=== PATIENT | male | born 1975 | race Caucasian/White ===

== ENCOUNTER 2016-09-26 12:55 | Inpatient (IN) | payer OTHER, BC ==
[2016-09-26 13:02] VITALS: BMI 27.2
--- NOTE | 2016-09-26 13:46 | PDOC ---
History of Present Illness - General History Source: Patient, Old Records Exam Limitations: No Limitations <Tosin Redman - Last Filed: 09/26/16 16:35> - General History Source: Patient Exam Limitations: No Limitations - History of Present Illness Initial Comments: 09/26/16 13:58 The patient is a 41 year old male, with no significant past medical history who presents to the emergency department with intermittent headache for 2 weeks. He ranks his pain a 10/10 in pain intensity. He describes the pain as a throbbing sensation, often made worse when he does any exerting activity. He reports the episodes of headaches last a couple minute each during the first onset, getting longer and more painful recently, noting his last episode lasted about 45 minute. He reports the headache is often localized over the right side of his head. He reports having alleviation from Aleve. He notes having one episode of nausea and vomiting while having his headache. He denies any recent fevers, chills, or dizziness. He denies any recent diarrhea or constipation. Allergies: NKA Past surgical history: None reported. Social History: current smoker. Denies EtOH and drug use. 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 - Immunization History Immunization Up to Date: Yes - Psycho/Social/Smoking Cessation Hx Anxiety: No Suicidal Ideation: No Smoking Status: Yes Smoking History: Current every day smoker Have you smoked in the past 12 months: Yes Number of Cigarettes Smoked Daily: 10 Information on smoking cessation initiated: Yes 'Breaking Loose' booklet given: 09/26/16 Hx Alcohol Use: No Drug/Substance Use Hx: No <Toisn Redman - Last Filed: 09/26/16 16:35> <Alvin Chacon - Last Filed: 09/26/16 17:11> - Past Medical History Allergies/Adverse Reactions: Allergies Allergy/AdvReac Type Severity Reaction Status Date / Time No Known Allergies Allergy Verified 09/26/16 12:58 Home Medications: Ambulatory Orders NK [No Known Home Medication] 09/03/15 Review of Systems - Review of Systems Able to Perform ROS?: Yes Comments:: 09/26/16 13:57 CONSTITUTIONAL: Absent: fever, no chills, no fatigue EYES: Absent: visual changes ENT: Absent: ear pain, no sore throat CARDIOVASCULAR: Absent: chest pain, no palpitations RESPIRATORY: Absent: cough, no SOB GI: +nausa and vomitiing. Absent: abdominal pain, no constipation, no diarrhea GENITOURINARY: Absent: dysuria, no frequency, no hematuria MUSKULOSKELETAL: Absent: back pain, no arthralgia, no myalgia SKIN: Absent: rash NEURO: + headache <Alvin Chacon - Last Filed: 09/26/16 17:11> *Physical Exam - Vital Signs Last Vital Signs Temp Pulse Resp BP Pulse Ox 97.8 F 71 18 144/76 100 09/26/16 12:58 09/26/16 12:58 09/26/16 12:58 09/26/16 12:58 09/26/16 12:58 <Tosin Redman - Last Filed: 09/26/16 16:35> - Vital Signs Last Vital Signs Temp Pulse Resp BP Pulse Ox 97.8 F 71 18 144/76 100 09/26/16 12:58 09/26/16 12:58 09/26/16 12:58 09/26/16 12:58 09/26/16 12:58 - Physical Exam Comments: 09/26/16 14:01 GENERAL: Well developed, well nourished. Awake and alert. No acute distress. HEENT: Normocephalic, atraumatic. PERRLA, EOMI. No conjunctival pallor. Sclera are non- icteric. Moist mucous membranes. Oropharynx is clear. NECK: Supple. Full ROM. No JVD. Carotid pulses 2+ and symmetric, without bruits. No thyromegaly. No lymphadenopathy. CARDIOVASCULAR: Regular rate and rhythm. No murmurs, rubs, or gallops. Distal pulses are 2+ and symmetric. PULMONARY: No evidence of respiratory distress. Lungs clear to auscultation bilaterally. No wheezing, rales or rhonchi. ABDOMINAL: Soft. Non-tender. Non-distended. No rebound or guarding. No organomegaly. Normoactive bowel sounds. MUSCULOSKELETAL Normal range of motion at all joints. No bony deformities or tenderness. No CVA tenderness. EXTREMITIES: No cyanosis. No clubbing. No edema. No calf tenderness. SKIN: Warm and dry. Normal capillary refill. No rashes. No jaundice. NEUROLOGICAL: Alert, awake, appropriate. Cranial nerves 2-12 intact. No deficits to light touch and temperature in face, upper extremities and lower extremities. No motor deficits in the in face, upper extremities and lower extremities. Normoreflexic in the upper and lower extremities. Normal speech. Toes are down- going bilaterally. Gait is normal without ataxia. PSYCHIATRIC: Cooperative. Good eye contact. Appropriate mood and affect. <Alvin Chacon - Last Filed: 09/26/16 17:11> ED Treatment Course - LABORATORY CBC & Chemistry Diagram: 09/26/16 14:45 09/26/16 14:45 <Tosin Redman - Last Filed: 09/26/16 16:35> - LABORATORY CBC & Chemistry Diagram: 09/26/16 14:45 09/26/16 14:45 - RADIOLOGY Radiograph Interpretation: 09/26/16 16:[address] WITHOUT CONTRAST impressions reported by : Small right lacunar infarct. Subtle hypodensities in the brain above and lateral to the lateral ventricle on the right. Please note multiple metallic fixation devices surrounding the left orbit. This may be a contraindication for MRI. Correlate clinically. 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 Differential diagnosis includes but is not limited to: Hydrocephalus, mass lesion, tension headache, migraine, dehydration, electrolyte abnormality, toxic/metabolic derangement Plan: 1. Labs 2. IV fluid for hydration 3. Pain management 4. CT head 5. Observe and reevaluate 09/26/16 16:35 Addendum: The labs were reviewed and are noted in the EMR. The CT head shows a small right lacunar infarct with small hypodensities along the lateral ventricle on the right. Neurology has been called. I've discussed this case with the patient's primary care physician. The plan is to admit the patient to the hospital for neurologic workup. The patient has metallic fixation devices in his head and therefore is unknown were unclear whether or not the patient is able to get an MRI. <Tosin Redman - Last Filed: 09/26/16 16:35> - Medical Decision Making 09/26/16 16:17 Call made to [facility], status controller neurologist will call back 09/26/16 16:18 Call made to , PCP, case discussed. 09/26/16 16:21 Call back from , from [facility], case discussed. 09/26/16 16:26 Call made to , awaiting call back. 09/26/16 16:57 Call made to , awaiting call back. 09/26/16 17:10 Call back from , case discussed. <Alvin Chacon - Last Filed: 09/26/16 17:11> *DC/Admit/Observation/Transfer - Discharge Dispostion Admit: Yes - Attestations Physician Attestion: 09/26/16 14:06 I, Dr. Tosin Redman, attest that the scribes documentation that appears above has been prepared under my direction and personally reviewed by me in its entirety. I confirmed that the note above accurately reflects all work, treatment, procedures, and medical decision-making performed by me. <Tosin Redman - Last Filed: 09/26/16 16:35> - Attestations Scribe Attestion: 09/26/16 13:59 Documentation prepared by Alvin Chacon, acting as medical payment poster for Tosin Redman MD. <Alvin Chacon - Last Filed: 09/26/16 17:11> Diagnosis at time of Disposition: Headache, Stroke - Discharge Dispostion Condition at time of disposition: Stable - Referrals Referrals: Adonis Palomino MD [Primary Care Provider] -
[2016-09-26] MEDS ORDERED: KETOROLAC TROMETHAMINE 30 MG/1 ML VIAL IVPUSH ONE (14:01)
[2016-09-26] MEDS ORDERED: SODIUM CHLORIDE 1,000 ML IV STA (14:01)
[2016-09-26] MEDS ORDERED: KETOROLAC TROMETHAMINE 30 MG/1 ML VIAL ONE (14:09)
[2016-09-26 14:55] LABS: BASOPHIL 0.5 % (0-2.0)
[2016-09-26 14:57] LABS: EOSINOPHIL 2.3 % (0-4.5); MCH 30.1 pg (25.7-33.7); MCHC 33.6 g/dl (32.0-35.9); MEAN CELL VOLUME 89.6 fl (80-96); MEAN PLT VOLUME 8.6 fl (7.5-11.1); NEUTROPHILS 63.2 % (42.8-82.8); PLATELET COUNT 217 K/MM3 (134-434); RDW 13.6 % (11.9-15.9); WHITE BLOOD COUNT 12.4 K/mm3 (4.0-10.0)
[2016-09-26 15:24] LABS: ALBUMIN 4.4 g/dl (3.4-5.0); ANION GAP 8 (8-16); CO2 27 mmol/L (21-32); CREATININE 0.8 mg/dL (0.7-1.3); GLUCOSE,RANDOM 81 mg/dL (74-106); SGOT/AST 17 U/L (15-37); SGPT/ALT 27 U/L (12-78)
[2016-09-26 15:25] LABS: ALK PHOS 81 U/L (45-117); BILIRUBIN,TOTAL 0.4 mg/dL (0.2-1.0); TOT PROT 7.7 g/dl (6.4-8.2)
[2016-09-26 20:15] LABS: URINE APPEARANCE CLEAR; URINE BILIRUBIN NEGATIVE (NEGATIVE); URINE BLOOD NEGATIVE (NEGATIVE); URINE COLOR YELLOW; URINE GLUCOSE (UA) NEGATIVE (NEGATIVE); URINE KETONE NEGATIVE (NEGATIVE); URINE LEUK ESTERASE NEGATIVE (NEGATIVE); URINE NITRITE NEGATIVE (NEGATIVE); URINE PROTEIN NEGATIVE (NEGATIVE); URINE UROBILINOGEN NEGATIVE E.U./dl (0.2-1.0)
[2016-09-26] MEDS ORDERED: ACETAMINOPHEN 325 MG TABLET (FP) PO PRN (20:27)
[2016-09-26] MEDS ORDERED: D5-1/2NS+20 MEQ KCL - 1,000 ML IV SCH (20:30)
[2016-09-27] MEDS ORDERED: ACETAMINOPHEN 325 MG TABLET (FP) ONE (00:16)
[2016-09-27 07:27] LABS: BASOPHIL 0.7 % (0-2.0); EOSINOPHIL 3.4 % (0-4.5); MCH 30.4 pg (25.7-33.7); MCHC 33.8 g/dl (32.0-35.9); MEAN PLT VOLUME 8.6 fl (7.5-11.1); PLATELET COUNT 183 K/MM3 (134-434); RDW 13.6 % (11.9-15.9); WHITE BLOOD COUNT 9.4 K/mm3 (4.0-10.0)
[2016-09-27 07:51] LABS: ALBUMIN 3.7 g/dl (3.4-5.0); ANION GAP 10 (8-16); CALCIUM 8.7 mg/dL (8.5-10.1); CO2 24 mmol/L (21-32); GLUCOSE,RANDOM 130 mg/dL (74-106)
[2016-09-27 07:56] LABS: ALK PHOS 72 U/L (45-117); BILIRUBIN,TOTAL 0.3 mg/dL (0.2-1.0); CREATININE 0.7 mg/dL (0.7-1.3); SGOT/AST 13 U/L (15-37); SGPT/ALT 25 U/L (12-78); TOT PROT 6.6 g/dl (6.4-8.2)
--- NOTE | 2016-09-27 09:49 | HP ---
Admitting History and Physical - Admission History of Present Illness: 41 year old male, with no significant past medical history who presents to the emergency department with intermittent headache for 2 weeks. He ranks his pain a 10/10 in pain intensity. He describes the pain as a throbbing sensation, often made worse when he does any exerting activity. He reports the episodes of headaches last a couple minute each during the first onset, getting longer and more painful recently, noting his last episode lasted about 45 minute. He reports the headache is often localized over the right side of his head. He reports having alleviation from Aleve. He notes having one episode of nausea and vomiting while having his headache. He denies any recent fevers, chills, or dizziness. He denies any recent diarrhea or constipation. 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) Cardiovascular: No: HTN, Hyperlipdemia Pulmonary: No: Asthma - Smoking History Smoking history: Current every day smoker Have you smoked in the past 12 months: Yes Aproximately how many cigarettes per day: 10 - Alcohol/Substance Use Hx Alcohol Use: No Home Medications - Allergies Allergies/Adverse Reactions: Allergies Allergy/AdvReac Type Severity Reaction Status Date / Time No Known Allergies Allergy Verified 09/26/16 12:58 - Home Medications Home Medications: Ambulatory Orders NK [No Known Home Medication] 09/03/15 Review of Systems - Review of Systems Cardiovascular: reports: No Symptoms Respiratory: reports: No Symptoms Gastrointestinal: reports: No Symptoms Genitourinary: reports: No Symptoms Neurological: reports: Headache Physical Examination Vital Signs: Vital Signs Temperature 97.7 F 09/27/16 09:00 Pulse Rate 76 09/27/16 09:00 Respiratory Rate 20 09/27/16 09:00 Blood Pressure 128/43 09/27/16 09:00 O2 Sat by Pulse Oximetry (%) 100 09/27/16 09:00 Cardiovascular: Yes: Regular Rate and Rhythm Respiratory: Yes: Regular, CTA Bilaterally Gastrointestinal: Yes: Normal Bowel Sounds, Soft Edema: No Neurological: Yes: Alert, Oriented. No: Aphasia, Ataxia, Confusion, Seizure, Tremors Labs: CBC, BMP 09/27/16 06:20 09/27/16 06:20 Problem List - Problems (1) Headache Assessment/Plan: NEURO CONSULT Code(s): R51 - HEADACHE (2) Stroke Assessment/Plan: MRI NEURO Code(s): I63.9 - CEREBRAL INFARCTION, UNSPECIFIED (3) Abnormal CT scan, head Assessment/Plan: N/S CONSULT Code(s): R93.0 - ABNORMAL FINDINGS ON DX IMAGING OF SKULL AND HEAD, NEC
--- NOTE | 2016-09-27 11:25 | CONSULT ---
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 The patient reports a two week history of intermittent headaches which recently increased in severity and frequency. Patient noted posterior, throbbing pain, radiating anteriorly, without nausea, vomiting, photophobia or phonophobia. Due to his symptoms he presented to the ED where CT head performed showed a small right lacunar infarct. Neurology consulted for CT head findings of stroke. Patient denies any weakness, sensory deficit and states his headache has resolved. 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--S/P SHUNT) Cardio/Vascular: No: HTN, Hyperlipdemia Pulmonary: No: Asthma - Alcohol/Substance Use Hx Alcohol Use: No - Smoking History Smoking history: Current every day smoker Have you smoked in the past 12 months: Yes Aproximately how many cigarettes per day: 10 Home Medications - Allergies Allergies/Adverse Reactions: Allergies Allergy/AdvReac Type Severity Reaction Status Date / Time No Known Allergies Allergy Verified 09/26/16 12:58 - Home Medications Home Medications: Ambulatory Orders NK [No Known Home Medication] 09/03/15 Review of Systems - Review of Systems Constitutional: reports: No Symptoms Eyes: reports: No Symptoms HENT: reports: No Symptoms Neck: reports: No Symptoms Cardiovascular: reports: No Symptoms Respiratory: reports: No Symptoms Gastrointestinal: reports: No Symptoms Neurological: reports: Headache Physical Exam Vital Signs: Vital Signs Temperature 97.7 F 09/27/16 09:00 Pulse Rate 75 09/27/16 10:25 Respiratory Rate 18 09/27/16 10:25 Blood Pressure 132/87 09/27/16 10:25 O2 Sat by Pulse Oximetry (%) 98 09/27/16 10:25 Constitutional: Yes: No Distress Eyes: Yes: Conjunctiva Clear, EOM Intact HENT: Yes: Atraumatic, Normocephalic Cardiovascular: Yes: S1, S2 Neurological: Yes: Alert, Oriented, Cran Nerves II-XII Intact ...Motor Strength: WNL Labs: CBC, BMP 09/27/16 06:20 09/27/16 06:20 Assessment/Plan 41 year old man, 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 The patient reports a two week history of intermittent headaches which recently increased in severity and frequency. Patient noted posterior, throbbing pain, radiating anteriorly, without nausea, vomiting, photophobia or phonophobia. Due to his symptoms he presented to the ED. CT head performed showed a small right lacunar infarct with ill defined hypodensity above this area. Neurology consulted for CT head findings of stroke. Patient denies any weakness, sensory deficit and states his headache has resolved. Right lacunar infarct NIHSS 0, patient exam non focal Unclear of chronicity of stroke seen Recommend MRI brain without contrast if able (history of metal in the eye) If MRI brain can not be completed, can repeat CT head today to evaluate for concern of stroke Start aspirin 81 mg (ordered) LDL, hga1c (ordered) Carotid dopplers (ordered) Echocardiogram (ordered) If above shows no acute findings patient can follow up in neuro clinic as an outpatient
--- NOTE | 2016-09-27 12:22 | CONSULT ---
Consult Consult Specialty:: endocrine Referred by:: dr.annabi monaco Reason for Consultation:: brain lesion abnormal ct brain - History of Present Illness Chief Complaint: headache History of Present Illness: 41 year old male, with no significant past medical history who presents to the emergency department with intermittent headache for 2 weeks. He ranks his pain a 10/10 in pain intensity. He describes the pain as a throbbing sensation, often made worse when he does any exerting activity. 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) Cardio/Vascular: No: HTN, Hyperlipdemia Pulmonary: No: Asthma - Alcohol/Substance Use Hx Alcohol Use: No - Smoking History Smoking history: Current every day smoker Have you smoked in the past 12 months: Yes Aproximately how many cigarettes per day: 10 Home Medications - Allergies Allergies/Adverse Reactions: Allergies Allergy/AdvReac Type Severity Reaction Status Date / Time No Known Allergies Allergy Verified 09/26/16 12:58 - Home Medications Home Medications: Ambulatory Orders NK [No Known Home Medication] 09/03/15 Review of Systems - Review of Systems Constitutional: reports: Lethargy, Unintentional Wgt. Loss Eyes: reports: Blurred Vision HENT: reports: No Symptoms Neck: reports: No Symptoms Cardiovascular: reports: No Symptoms Respiratory: reports: Exercise Intolerance, SOB on Exertion Gastrointestinal: reports: No Symptoms Genitourinary: reports: No Symptoms Breasts: reports: No Symptoms Reported Musculoskeletal: reports: No Symptoms Integumentary: reports: No Symptoms Neurological: reports: Headache, Weakness Endocrine: reports: No Symptoms Hematology/Lymphatic: reports: No Symptoms Psychiatric: reports: No Symptoms Physical Exam Vital Signs: Vital Signs Temperature 97.7 F 09/27/16 09:00 Pulse Rate 75 09/27/16 10:25 Respiratory Rate 18 09/27/16 10:25 Blood Pressure 132/87 09/27/16 10:25 O2 Sat by Pulse Oximetry (%) 98 09/27/16 10:25 Constitutional: Yes: Anxious Eyes: Yes: EOM Intact HENT: Yes: Normocephalic Neck: Yes: Trachea Midline Cardiovascular: Yes: Regular Rate and Rhythm Respiratory: Yes: CTA Bilaterally Gastrointestinal: Yes: Normal Bowel Sounds ...Rectal Exam: Yes: Deferred Renal/: Yes: WNL Breast(s): Yes: WNL Musculoskeletal: Yes: Back Pain Extremities: Yes: WNL Edema: No Integumentary: Yes: WNL Neurological: Yes: Alert, Oriented Psychiatric: Yes: Alert, Oriented Labs: CBC, BMP 09/27/16 06:20 09/27/16 06:20 Problem List - Problems (1) Abnormal CT scan, head Code(s): R93.0 - ABNORMAL FINDINGS ON DX IMAGING OF SKULL AND HEAD, NEC (2) Headache Code(s): R51 - HEADACHE (3) Stroke Code(s): I63.9 - CEREBRAL INFARCTION, UNSPECIFIED (4) Neck pain on left side Code(s): M54.2 - CERVICALGIA Assessment/Plan Current Active Problems Abnormal CT scan, head (Acute) Headache (Acute) Stroke (Acute) neck pain ro thyroid lesion Abnormal Lab Results 09/26/16 09/27/16 14:45 06:20 WBC 12.4 H Random Glucose 130 H D AST 13 L D Laboratory Results - last 24 hr 09/26/16 09/26/16 09/26/16 14:45 14:45 19:33 WBC 12.4 H RBC 4.75 Hgb 14.3 Hct 42.5 MCV 89.6 MCHC 33.6 RDW 13.6 Plt Count 217 MPV 8.6 Neutrophils % 63.2 Lymphocytes % 26.5 Monocytes % 7.5 Eosinophils % 2.3 Basophils % 0.5 Sodium 140 Potassium 4.1 Chloride 105 Carbon Dioxide 27 Anion Gap 8 BUN 15 Creatinine 0.8 Creat Clearance w eGFR > 60 Random Glucose 81 Calcium 10.0 Total Bilirubin 0.4 AST 17 ALT 27 Alkaline Phosphatase 81 Total Protein 7.7 Albumin 4.4 Urine Color Yellow Urine Appearance Clear Urine pH 5.0 Ur Specific [place] 1.025 Urine Protein Negative Urine Glucose (UA) Negative Urine Ketones Negative Urine Blood Negative Urine Nitrite Negative Urine Bilirubin Negative Urine Urobilinogen Negative Ur Leukocyte Esterase Negative 09/27/16 09/27/16 06:20 06:20 WBC 9.4 RBC 4.47 Hgb 13.6 Hct 40.2 MCV 90.0 MCHC 33.8 RDW 13.6 Plt Count 183 MPV 8.6 Neutrophils % 56.0 Lymphocytes % 30.9 Monocytes % 9.0 Eosinophils % 3.4 Basophils % 0.7 Sodium 141 Potassium 4.1 Chloride 107 Carbon Dioxide 24 Anion Gap 10 BUN 11 D Creatinine 0.7 Creat Clearance w eGFR > 60 Random Glucose 130 H D Calcium 8.7 Total Bilirubin 0.3 D AST 13 L D ALT 25 Alkaline Phosphatase 72 Total Protein 6.6 Albumin 3.7 Urine Color Urine Appearance Urine pH Ur Specific [place] Urine Protein Urine Glucose (UA) Urine Ketones Urine Blood Urine Nitrite Urine Bilirubin Urine Urobilinogen Ur Leukocyte Esterase plan: ck tsh /lyme titer/vdrl carotid doppler smoke cessation with nicoderm patch
--- NOTE | 2016-09-27 12:24 | PN ---
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 CT head 2016- Same R frontal centrum seimiovale white matter hypodensity with no significant mass effect/edema; L orbito-frontal metallic artifact R frontal centrum semiovale hypodensity visible on prior head CT probably related to prior R frontal ventricular catheter tract Doubt acute intracranial pathology such as stroke Brain MRI with and without recommended to better delineate pathology if feasible (pt to check with his old ENT doc at [facility]), and he would be welcome to see me in followup with the MRI images
[2016-09-27 15:06] VITALS: BP 128/66; PULSE 80; TEMP 98.6
--- NOTE | 2016-09-27 16:09 | EKG ---
Test Reason : Blood Pressure : / mmHG Vent. Rate : 079 BPM Atrial Rate : 079 BPM P-R Int : 170 ms QRS Dur : 108 ms QT Int : 370 ms P-R-T Axes : 067 072 020 degrees QTc Int : 424 ms SINUS RHYTHM WITH MARKED SINUS ARRHYTHMIA MODERATE VOLTAGE CRITERIA FOR LVH, MAY BE NORMAL VARIANT NONSPECIFIC T WAVE ABNORMALITY ABNORMAL ECG WHEN COMPARED WITH ECG OF 13-JAN-2011 07:38, NONSPECIFIC T WAVE ABNORMALITY NOW EVIDENT IN LATERAL LEADS Confirmed by WILIAN MCLAUGHLIN MD ([id number]) on 09/27/2016 4:08:43 PM Referred By: Confirmed By:WILIAN MCLAUGHLIN MD
[2016-09-28] MEDS ORDERED: ASPIRIN 81 MG CHEWABLE TABLETS PO SCH (10:00)
--- NOTE | 2016-09-28 11:48 | CONS ---
DATE OF CONSULTATION: 09/27/2016 CHIEF COMPLAINT: Right frontal headache with 1 episode of nausea/vomiting. HISTORY OF PRESENT ILLNESS: The patient is a 41-year-old right-handed male with a history as a of a possible hydrocephalus status post ventricular catheter then subsequent shunt placement. According to the patient's mother second- handed report, the shunt was placed, but it was subsequently removed soon after. The patient has been functioning well as an adult. 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 He has experienced occasional right-sided frontal and parietal headaches. There was 1 episode of increasing nausea and vomiting recently, and he was sent to the emergency room for evaluation. The patient also had a history of left frontal fracture status post ORIF about 20 years ago at [facility]. The patient presently denies any nuchal rigidity or any diplopia or weakness or numbness of the extremities. He has no gait ataxia. There is no loss of bowel or bladder function. 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 CURRENT MEDICATIONS: Aspirin p.r.n. ALLERGIES: There is no known drug allergy. FAMILY HISTORY: Noncontributory in terms of social history. 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 He smokes about 1/2 pack of cigarettes a day. He does not use recreational drugs. He drinks alcohol socially. REVIEW OF SYSTEMS: Otherwise negative for other major cardiovascular, pulmonary , gastrointestinal, genitourinary, endocrinologic, neurologic, or psychological problems except for the above. PHYSICAL EXAMINATION: General: He is awake and alert. He is not in acute distress. HEENT: Shows him to be normocephalic, atraumatic, anicteric. He has right frontal bur holes as well as right parietal bur holes. There is also a scar behind the hairline, which was used to perform his left frontal fracture ORIF. Neck: Supple with no nuchal rigidity. He has no carotid bruits. Coronary: Demonstrates regular rhythm. Lungs: Clear bilaterally. Abdomen: Benign. Extremities: There is no sign of DVT. Neurologic: He is awake, alert, and oriented x4. Cranial nerve examination is intact 2-12. Motor examination shows 5/5 strength without drift. Sensory examination is intact to light touch. Deep tendon reflexes 2+ throughout. Gait is normal. Cerebellar examination demonstrates normal coordination without a tremor. He has intact [id number] examination. LABORATORY: Shows a white blood cell count 9400, hemoglobin 13.6, platelet count 183,000. Serum sodium 141, potassium 4.1, BUN 11, creatinine 0.7, glucose 130. LFTs are normal. Urinalysis is negative. CT scan of the head demonstrated a left frontal skull artifact consistent with implants used for ORIF of the skull fracture. This is just over the left frontal sinus. There is hypodensity in the right frontal foramen ovale. There is no associated edema, mass effect, or shift. A CT scan of the head from 2013 demonstrated a small right frontal central semiovale hypodensity. IMPRESSION: 1. 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 2. History of left frontal skull open reduction internal fixation for report of fracture. RECOMMENDATIONS: The patient presents with intermittent right-sided frontal and parietal headaches. He also had 1 episode of nausea and vomiting. His headache is better now. He denies any photophobia, diplopia, nuchal rigidity, or any other signs of infection. He has no weakness or numbness of extremity. He never had a seizure episode. CT scan of the head demonstrated both in 2013 and in 2017 evidence of probable encephalomalacia/cystic changes from the right frontal ventricular catheter tract. The patient had a reported history of hydrocephalus and possibly IVH, but that is clearly not the case at this time. He has been functional as an adult for many years and does not have any signs of hydrocephalus. An MRI of the brain with and without contrast will be ideal to better delineate the pathology, but will need to ascertain the nature of the left frontal bone metallic implants to make sure they are MRI compatible. The patient has stated that the ENT physician had previously told him that it was MRI compatible, but we cannot be certain of it at this time. No neurosurgical intervention is recommended at this time. If his symptoms persistent, an MRI could be obtained. I will be happy to see the patient in follow up. The above was relayed to the patient and his significant other in the emergency room at the bedside. All questions were answered. I will defer to Dr. Luevano to review the findings of the carotid Doppler study with the patient. I do not expect anything significant there, however. LYNN HENDRICKS M.D. [id number] MTDD
[2016-09-28 12:15] LABS: CHOLESTEROL 166 mg/dL (50-200); LDL CHOLESTEROL (ONLY SJRH) 132 mg/dL (5-100)
[2016-09-28 12:22] LABS: THYROID STIMULATING HORMONE 3.77 uIU/ml (0.358-3.74)
--- NOTE | 2016-09-29 09:35 | PDOC ---
NIH Stroke Scale - Last Known Well Date/Time & Onset Date Last Known Well: 09/12/16 Time Last Known Well: 00:00 - Initial Evaluation Level of consciousness: Alert Ask patient the month and their age: Answers both correctly Ask patient to open & close eyes; make fist and let go: Obeys both correctly Best gaze (horizontal eye movement): Normal Visual field testing: No visual field loss Facial paresis (Show teeth/raise eyebrows/close eyes tight): Normal symmetrical movement Motor Function: Left Arm: Normal Motor Function: Right Arm: Normal (extends arm 90 (or 45) degrees for 10 seconds without drift Motor Function: Left Leg: Normal (extends leg 30 degrees for 5 seconds without drift) Motor Function: Right Leg: Normal (extends leg 30 degrees for 5 seconds without drift) Limb Ataxia: No ataxia Sensory(Use pinprick test arms,legs,trunk,face/side to side): Normal Best language (Describe picture, name items, read sentences): No Aphasia Dysarthria (read several words): Normal articulation Extinction and Inattention: No abnormality (Patient is not eligible for tPA becauseout of the time window.) - Total Score NIH Stroke Scale Score: 0
== END 2016-09-27 15:06 | disposition home or self-care (01) | DRG 103 ==
LOC: JER 12:55 → JERBED 17:19
PROVIDERS: ADMIT Family Medicine; ATTEND Family Medicine
DX: R51 Headache (principal); M54.2 Cervicalgia; R93.0 Abnormal findings on diagnostic imaging of skull and head, not elsewhere classified; F17.210 Nicotine dependence, cigarettes, uncomplicated; Z87.820 Personal history of traumatic brain injury
CPT/HCPCS: 36415; 70450-TC; 71020-TC; 80053; 80061; 81003; 83036; 83721; 84443; 85025; 86593; 93005; 93010; 93306-TC; 93880-TC; 99284-25

== ENCOUNTER 2019-04-05 02:00 | Emergency (ER) | payer OTHER, BC ==
[2019-04-05 02:17] VITALS: PULSE 75; TEMP 97; BMI 67.6
[2019-04-05 02:34] VITALS: BP 114/64
[2019-04-05] MEDS ORDERED: DIPHTH,PERTUSS(ACELL),TET 0.5 ML DISP.SYRIN IM ONE ×2 (03:41→03:49)
--- NOTE | 2019-04-05 03:41 | PDOC ---
History of Present Illness - General Chief Complaint: Injury Stated Complaint: RIGHT FOOT CUT Time Seen by Provider: 04/05/19 03:28 History Source: Patient Exam Limitations: No Limitations Past History - Past Medical History Allergies/Adverse Reactions: Allergies Allergy/AdvReac Type Severity Reaction Status Date / Time No Known Allergies Allergy Verified 03/28/18 17:13 COPD: No - Surgical History Neurologic Surgery: Yes (HYDROCEPHALUS IN CHILDHOOD) - Immunization History Immunization Up to Date: Yes - Suicide/Smoking/Psychosocial Hx Smoking Status: Yes Smoking History: Former smoker Have you smoked in the past 12 months: No Number of Cigarettes Smoked Daily: 10 If you are a former smoker, when did you quit?: 1 year ago Information on smoking cessation initiated: No 'Breaking Loose' booklet given: 03/28/18 Hx Alcohol Use: No Drug/Substance Use Hx: No Substance Use Type: None *Physical Exam - Vital Signs Last Vital Signs Temp Pulse Resp BP Pulse Ox 97.0 F L 75 20 114/64 100 04/05/19 02:14 04/05/19 02:14 04/05/19 02:14 04/05/19 02:33 04/05/19 02:14 *DC/Admit/Observation/Transfer Diagnosis at time of Disposition: Laceration - Discharge Dispostion Disposition: HOME Decision to Admit order: No - Referrals Referrals: Adonis Palomino MD [Primary Care Provider] - - Patient Instructions Printed Discharge Instructions: DI for Laceration Repair -- Simple Additional Instructions: You were seen for your laceration to the foot. Please use the antibiotic ointment given to you everyday for the next 3 days. Please keep the area dry and bandaged. Please follow up with your primary medical physician within 1 week after discharge. Please return to the emergency department if you have worsening symptoms or new concerning symptoms. Thank you. - Post Discharge Activity
[2019-04-05] MEDS ORDERED: BACITRACIN 15 GM TUBE TOPICAL OINTMENT TP ONE (03:49)
[2019-04-05] MEDS ORDERED: BACITRACIN 0.9 GM PACKET ONE (03:58)
[2019-04-05] MEDS ORDERED: KETOROLAC TROMETHAMINE 30 MG/1 ML VIAL IM ONE (04:05)
[2019-04-05] MEDS ORDERED: KETOROLAC TROMETHAMINE 30 MG/1 ML VIAL ONE (04:11)
== END 2019-04-05 04:20 | disposition home or self-care (01) ==
LOC: SUPCPDRO 02:00 → JER 02:00
DX: S91.311A Laceration without foreign body, right foot, initial encounter (principal); W27.8XXA Contact with other nonpowered hand tool, initial encounter; Y93.E8 Activity, other personal hygiene; Y92.038 Other place in apartment as the place of occurrence of the external cause; Y99.8 Other external cause status
CPT/HCPCS: 90715; 99281-25

== ENCOUNTER 2019-09-21 02:22 | Emergency (ER) | payer OTHER, BC ==
[2019-09-21 02:32] VITALS: BP 111/84; PULSE 88; TEMP 97.9; BMI 31.3
--- NOTE | 2019-09-21 02:39 | PDOC ---
History of Present Illness - General Chief Complaint: Headache Stated Complaint: HEADACHE Time Seen by Provider: 09/21/19 02:39 - History of Present Illness Initial Comments: 09/21/19 02:57 Mr. Evans is a 44 yo male w/ pmh of W[employer] PROC[employer] TE[employer] shunt as child (unknown reason), L frontal fixation s/p ORIF, and prior evaluation in 2013/2016 for headache who presents for evaluation of worsening L sided headache weekly. Patient reports this has been occurring for several months and have begun to be triggered by sexual intercourse and happen just prior to climax. Patient reports symptoms have been otherwise intermittent and happen unrelated to anything specific throughout his day. Denies any other symptoms at this time. The patient denies chest pain, shortness of breath, and dizziness. Denies fever , chills, nausea, vomit, diarrhea and constipation. Denies dysuria, frequency, urgency and hematuria. Past History - Past Medical History Allergies/Adverse Reactions: Allergies Allergy/AdvReac Type Severity Reaction Status Date / Time No Known Allergies Allergy Verified 09/21/19 02:32 Home Medications: Ambulatory Orders NK [No Known Home Medication] 09/21/19 COPD: No - Surgical History Neurologic Surgery: Yes (HYDROCEPHALUS IN CHILDHOOD) - Immunization History Immunization Up to Date: Yes - Psycho Social/Smoking Cessation Hx Smoking Status: Yes Smoking History: Never smoked Have you smoked in the past 12 months: No Number of Cigarettes Smoked Daily: 10 If you are a former smoker, when did you quit?: 1 year ago 'Breaking Loose' booklet given: 03/28/18 Hx Alcohol Use: No Drug/Substance Use Hx: No Substance Use Type: None Review of Systems - Review of Systems Comments:: 09/21/19 03:01 GENERAL/CONSTITUTIONAL: No fever or chills. No weakness. HEAD, EYES, EARS, NOSE AND THROAT: No change in vision. No ear pain or discharge. No sore throat. CARDIOVASCULAR: No chest pain or shortness of breath RESPIRATORY: No cough, wheezing, or hemoptysis. GASTROINTESTINAL: No nausea, vomiting, diarrhea or constipation. GENITOURINARY: No dysuria, frequency, or change in urination. MUSCULOSKELETAL: No joint or muscle swelling or pain. No neck or back pain. SKIN: No rash NEUROLOGIC: +Headache as reported. No vertigo, loss of consciousness, or change in strength/sensation. ENDOCRINE: No increased thirst. No abnormal weight change HEMATOLOGIC/LYMPHATIC: No anemia, easy bleeding, or history of blood clots. ALLERGIC/IMMUNOLOGIC: No hives or skin allergy. *Physical Exam - Vital Signs Last Vital Signs Temp Pulse Resp BP Pulse Ox 97.9 F 88 18 111/84 98 09/21/19 02:30 09/21/19 02:30 09/21/19 02:30 09/21/19 02:30 09/21/19 02:30 - Physical Exam 09/21/19 03:01 GENERAL: Awake, alert, and fully oriented, in no acute distress HEAD: No signs of trauma, normocephalic, atraumatic EYES: PERRLA, EOMI, sclera anicteric, conjunctiva clear ENT: Auricles normal inspection, hearing grossly normal, nares patent, oropharynx clear without exudates. Moist mucosa NECK: Normal ROM, supple, no lymphadenopathy, JVD, or masses LUNGS: No distress, speaks full sentences, clear to auscultation bilaterally HEART: Regular rate and rhythm, normal S1 and S2, no murmurs, rubs or gallops, peripheral pulses normal and equal bilaterally. ABDOMEN: Soft, nontender, normoactive bowel sounds. No guarding, no rebound. No masses EXTREMITIES: Normal inspection, Normal range of motion, no edema. No clubbing or cyanosis. NEUROLOGICAL: Cranial nerves II through XII grossly intact. Normal speech, normal gait, no focal sensorimotor deficits SKIN: Warm, Dry, normal turgor, no rashes or lesions noted. ED Treatment Course - LABORATORY CBC & Chemistry Diagram: 09/21/19 02:54 09/21/19 02:54 Medical Decision Making - Medical Decision Making 09/21/19 05:41 Mr. Evans is a 44 yo male w/ pmh as described who presents for evaluation of headache concerning for migraine vs. aneurysm vs. other acute intracranial process. Patient evaluated with labs as below as well as head CTA. Labs grossly wnl. Brain CTA negative. No concern for acute process at this time and patient has no current complaints w/ normal neurological exam. Discharging to home for further outpatient follow-up w/ neurology as needed. Laboratory Results - last 24 hr 09/21/19 09/21/19 02:54 02:54 WBC 10.3 H RBC 4.89 Hgb 15.0 Hct 43.7 MCV 89.3 MCH 30.6 MCHC 34.3 RDW 13.1 Plt Count 222 MPV 8.6 Absolute Neuts (auto) 4.9 Neutrophils % 47.4 D Lymphocytes % 40.8 H D Monocytes % 8.8 Eosinophils % 2.3 Basophils % 0.7 Nucleated RBC % 0 Sodium 138 Potassium 3.8 Chloride 105 Carbon Dioxide 27 Anion Gap 7 L BUN 15.7 Creatinine 0.8 Est GFR (CKD-EPI)AfAm 126.81 Est GFR (CKD-EPI)NonAf 109.41 Random Glucose 127 H Calcium 9.8 Total Bilirubin 0.4 AST 20 ALT 50 Alkaline Phosphatase 103 Total Protein 8.1 Albumin 4.5 Discharge - Discharge Information Problems reviewed: Yes Clinical Impression/Diagnosis: Headache Qualifiers: Headache type: unspecified Headache chronicity pattern: unspecified pattern Intractability: not intractable Qualified Code(s): R51 - Headache Disposition: HOME - Follow up/Referral Referrals: Adonis Palomino MD [Primary Care Provider] - Kirit Madison MD [Staff Physician] - - Patient Discharge Instructions Patient Printed Discharge Instructions: DI for Headache, Sexual Headaches: From Ecstasy to Agony Additional Instructions: You were evaluated today in the ER for your headaches. We performed a Head CT angio scan as well as laboratory evaluation. All results were negative and we believe you are safe for discharge. Please follow-up with Neurology as discussed for further evaluation. Return to ER if any increase in pain, altered mental status, or other concerning symptoms. - Post Discharge Activity
[2019-09-21] MEDS ORDERED: ACETAMINOPHEN 1000 MG/100 ML VIAL (NON FORMULARY) IVPB ONE (02:57)
[2019-09-21 03:01] LABS: BASO % 0.7 % (0-2.0); EOS % 2.3 % (0-4.5); HEMATOCRIT 43.7 % (35.4-49); LYMPH % 40.8 % (8-40); MCH 30.6 pg (25.7-33.7); MCHC 34.3 g/dl (32.0-35.9); MEAN CELL VOLUME 89.3 fl (80-96); MEAN PLT VOLUME 8.6 fl (7.5-11.1); MONO % 8.8 % (3.8-10.2); NEUT % 47.4 % (42.8-82.8); PLATELET COUNT 222 K/MM3 (134-434); RBC 4.89 M/mm3 (4.00-5.60); RDW 13.1 % (11.9-15.9); WHITE BLOOD COUNT 10.3 K/mm3 (4.0-10.0)
[2019-09-21] MEDS ORDERED: ACETAMINOPHEN INJECTION 100 ML IVPB ONE (03:01)
[2019-09-21 03:39] LABS: ALBUMIN 4.5 g/dl (3.4-5.0); BILIRUBIN,TOTAL 0.4 mg/dL (0.2-1); BLOOD UREA NITROGEN 15.7 mg/dL (7-18); CALCIUM 9.8 mg/dL (8.5-10.1); CREATININE 0.8 mg/dL (0.55-1.3); POTASSIUM 3.8 mmol/L (3.5-5.1); TOT PROT 8.1 g/dl (6.4-8.2)
--- NOTE | 2019-09-21 03:48 | PDOC ---
Attending Attestation - Resident Resident Name: Gerson Chaudhari - ED Attending Attestation I have performed the following: I have examined & evaluated the patient, The case was reviewed & discussed with the resident, I agree w/resident's findings & plan - HPI HPI: 09/21/19 20:14 Pt comes with severe headaches. Pt states that when he has sex, he has a throbbing in his head also - Physicial Exam PE: 09/21/19 20:15 No neuro deficits. Afebrile Heart and lungs normal I agree with resident exam - Medical Decision Making 09/21/19 05:45 Patient Name: PADMINI MALDONADO THIS IS A PRELIMINARY REPORT FROM [facility] DATE OF SERVICE: 2019-09-21 03:11:41 IMAGES: [id number] EXAM: BRAIN CTA HISTORY: Rule out aneurysm COMPARISON: None. FINDINGS: The right and left anterior, middle and posterior cerebral arteries are normal without clot, occlusion, high-grade stenosis or discrete aneurysm formation. The distal vertebrobasilar system is normal. The distal right and left internal carotid arteries are patent. There are no areas of abnormally increased or decreased enhancement. Status post left frontal sinus surgery. The visualized paranasal sinuses and mastoid air cells are clear. IMPRESSION: Normal CTA of the head. 09/21/19 20:15 Pt is stable for discharge. 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
== END 2019-09-21 06:02 | disposition home or self-care (01) ==
LOC: JER 02:22
PROC: 3E033NZ Introduction of Analgesics, Hypnotics, Sedatives into Peripheral Vein, Percutaneous Approach (ICD-10-PCS; principal; 2019-09-21)
DX: R51 Headache (principal); Z98.2 Presence of cerebrospinal fluid drainage device
CPT/HCPCS: 36415; 70496-TC; 80053; 85025; 99285-25; J0131

== ENCOUNTER 2021-04-01 11:40 | Emergency (ER) | payer BC ==
[2021-04-01 11:56] VITALS: TEMP 98.2; BMI 28.8
[2021-04-01] MEDS ORDERED: MECLIZINE HCL 25 MG TABLET (FP) ONE (12:46)
[2021-04-01] MEDS ORDERED: SODIUM CHLORIDE 0.9% 500 ML INFUS.BAG IV ONE (12:58)
[2021-04-01] MEDS ORDERED: MECLIZINE HCL 25 MG TABLET (FP) PO ONE (12:58)
[2021-04-01 13:04] LABS: INR 1.1 (0.82-1.09); PROTHROMBIN TIME (PATIENT) 12.2 SEC (10.2-13.0)
[2021-04-01 16:33] LABS: MAGNESIUM 1.7 mg/dL (1.8-2.4); PHOSPHOROUS 3.1 mg/dl (2.5-4.9)
[2021-04-01 17:20] VITALS: BP 121/79; PULSE 74
== END 2021-04-01 16:00 | disposition home or self-care (01) ==
LOC: FER 11:40
DX: R42 Dizziness and giddiness (principal); R53.83 Other fatigue
CPT/HCPCS: 36415; 70450-TC; 71046-TC-FY; 82962; 83735; 84100; 84443; 85610; 85730; 86308; 86618; 93005; 99284-25; C9803; U0003; U0005

== ENCOUNTER 2024-08-21 19:57 | Emergency (ER) | payer BC ==
[2024-08-21 20:03] VITALS: BP 153/85; PULSE 106; RESP 20; TEMP 99; BMI 28.1
[2024-08-21] MEDS ORDERED: DIPHTH,PERTUSS(ACELL),TET 0.5 ML DISP.SYRIN IM ONE (20:31)
[2024-08-21] MEDS: DIPHTH,PERTUSS(ACELL),TET 0.5 ML DISP.SYRIN IM ONE (20:33)
== END 2024-08-21 20:38 | disposition home or self-care (01) ==
LOC: JERFT 19:57 → JER 19:57 → JERFT 20:38
PROC: 0HQFXZZ Repair Right Hand Skin, External Approach (ICD-10-PCS; principal; 2024-08-21)
PROC: 3E0234Z Introduction of Serum, Toxoid and Vaccine into Muscle, Percutaneous Approach (ICD-10-PCS; 2024-08-21)
DX: S61.212A Laceration without foreign body of right middle finger without damage to nail, initial encounter (principal); Z23 Encounter for immunization; W26.0XXA Contact with knife, initial encounter; Y99.0 Civilian activity done for income or pay
CPT/HCPCS: 90715; 99284-25